=== PATIENT | female | born 2000 | race Asian ===

== ENCOUNTER 2018-04-20 13:53 | Emergency (ER) | payer OTHER ==
[2018-04-20 14:27] VITALS: BP 119/82
--- NOTE | 2018-04-20 15:36 | UC ---
Skin Complaint HPI - HPI Summary HPI Summary: 17 yo female presents with right thumb wound. She tells me that 5 days ago she was in the elevator at her dorm and went to push a button when the button broke and her thumb went through the machine. She sustained a small cut just below her cuticle. Over the last 2-3 days has had increased pain and yellow discharge from the area. Her tetanus is up to date. Denies fever or chills. She has been keeping the area covered with a band-aid - History of Current Complaint Chief Complaint: UCWounds Time Seen by Provider: 04/20/18 15:36 Stated Complaint: FINGER LACERATION Hx Obtained From: Patient Hx Last Menstrual Period: 04/12/18 Onset/Duration: Gradual Onset Onset Severity: Mild Current Severity: Mild Pain Intensity: 4 Pain Scale Used: 0-10 Numeric - Allergy/Home Medications Allergies/Adverse Reactions: Allergies Allergy/AdvReac Type Severity Reaction Status Date / Time amoxicillin Allergy Hives Verified 04/20/18 14:28 Home Medications: Home Medications Control 1 tab PO DAILY 04/20/18 [History] Fexofenadine (NF) [Janneth (NF)] 1 tab PO DAILY 04/20/18 [History Confirmed ] Fluoxetine HCl [Prozac] 30 mg PO DAILY 04/20/18 [History Confirmed 04/20/18] Review of Systems Constitutional: Negative Skin: Other - Right thumb wound Respiratory: Negative Cardiovascular: Negative Musculoskeletal: Negative Neurological: Negative Psychological: Negative All Other Systems Reviewed And Are Negative: Yes PMH/Surg Hx/FS Hx/Imm Hx Psychological History: Anxiety - Surgical History Surgical History: None Surgery Procedure, Year, and Place: denies - Family History Known Family History: Positive: None - Social History Occupation: Student Lives: Dormitory/Roommates Alcohol Use: None Substance Use Type: None Smoking Status (MU): Never Smoked Tobacco Physical Exam - Summary Physical Exam Summary: GENERAL: NAD. WDWN. No pain distress. SKIN: RIGHT THUMB: Just inferior to the cuticle there is a puncture wound with superficial abrasion. Moderate TTP. Mild warmth. Mild yellow drainage. No streaking or bleeding. NECK: Supple. Nontender. No lymphadenopathy. CHEST: No accessory muscle use. Breathing comfortably and in no distress. CV: Pulses intact. Cap refill <2seconds MSK: Right thumb: FROM without pain NEURO: Alert. PSYCH: Age appropriate behavior. Triage Information Reviewed: Yes Vital Signs: Initial Vital Signs Temp 99.1 F 04/20/18 14:24 Pulse 85 04/20/18 14:24 Resp 18 04/20/18 14:24 BP 119/82 04/20/18 14:24 Pulse Ox 100 04/20/18 14:24 Vital Signs Reviewed: Yes Course/Dx - Course Course Of Treatment: Right thumb wound infection. - Diagnoses Provider Diagnoses: Right thumb wound infection Discharge - Sign-Out/Discharge Documenting (check all that apply): Patient Departure All imaging exams completed and their final reports reviewed: No Studies - Discharge Plan Condition: Stable Disposition: HOME Prescriptions: Sulfamethox/Trimethoprim DS* [Bactrim DS 800/160 TAB*] 1 tab PO BID #14 tab Patient Education Materials: Wound Infection (ED) Referrals: No Primary Care Phys,NOPCP [Primary Care Provider] - Additional Instructions: If you develop a fever, shortness of breath, chest pain, new or worsening symptoms - please call your PCP or go to the ED. 1) Keep wound covered until well healed - Billing Disposition and Condition Condition: STABLE Disposition: Home - Attestation Statements Provider Attestation: I was available for consult. This patient was seen by the JORJE. The patient was not presented to, seen by, or examined by me. -Jarrett
== END 2018-04-20 15:46 | disposition home or self-care (01) ==
LOC: UCEAST 13:53
CPT/HCPCS: 99202; G0463